=== PATIENT | male | born 1945 | race Caucasian/White ===

== ENCOUNTER 2017-09-05 15:33 | Emergency (ER) | payer MEDICARE, OTHER ==
[2017-09-05] MEDS: cloNIDine HCL 0.1 MG TABLET PO (17:56)
[2017-09-05 18:18] LABS: BASO # 0.1 x10^3/uL (0.0-0.2); BASO % 1 % (0-3); EOS # 0.2 x10^3/uL (0.0-0.7); EOS % 1 % (0-3); HEMATOCRIT 48.7 % (39.0-53.0); HEMOGLOBIN 17.2 g/dL (13.0-17.5); LYMPH # 2.1 x10^3/uL (1.0-4.8); LYMPH % 13 % (24-48); MEAN CORPUSCULAR HEMOGLOBIN 33 pg (25-35); MEAN CORPUSCULAR HGB CONC 35 g/dL (31-37); MEAN CORPUSCULAR VOLUME 94 fL (79-100); MONO # 0.7 x10^3/uL (0.0-1.1); MONO % 5 % (0-9); NEUT # 12.9 x10^3uL (1.8-7.7); NEUT % 80 % (31-73); PLATELET COUNT 232 x10^3/uL (140-400); RED BLOOD COUNT 5.18 x10^6/uL (4.30-5.70); RED CELL DISTRIBUTION WIDTH 12.7 % (11.5-14.5)
[2017-09-05 18:27] LABS: ADD MAN DIFF? YES
[2017-09-05 18:29] LABS: ANION GAP 6 (6-14); BLOOD UREA NITROGEN 18 mg/dL (8-26); CALCIUM 9.5 mg/dL (8.5-10.1); CARBON DIOXIDE 30 mmol/L (21-32); CHLORIDE 105 mmol/L (98-107); GFR 73.7; GLUCOSE 88 mg/dL (70-99); POTASSIUM 3.5 mmol/L (3.5-5.1); SODIUM 141 mmol/L (136-145)
[2017-09-05 18:39] LABS: TROPONINI < 0.017 ng/mL (0.000-0.055)
[2017-09-05] MEDS: LABETALOL 20 MG/4 ML DISP.SYRIN. IVP (19:05)
[2017-09-05 20:08] LABS: % BANDS 3 % (0-9); % LYMPHS 18 % (24-48); % MONOS 3 % (0-10); % SEGS 76 % (35-66)
[2017-09-05 20:09] LABS: PLT ESTIMATE ADEQUATE (ADEQUATE)
== END 2017-09-05 20:32 | disposition home or self-care (01) ==
LOC: ER 15:33
DX: I10 Essential (primary) hypertension (principal); E78.00 Pure hypercholesterolemia, unspecified; Z88.1 Allergy status to other antibiotic agents
CPT/HCPCS: 36415; 80048; 84484; 85007; 85025; 93005; 96374; 96375; 99285-25; J2060; J3490